=== PATIENT | male | born 1950 | race Caucasian/White ===

== ENCOUNTER 2023-10-24 06:07 | Day surgery (SDC) | payer BC, SELFPAY ==
[2023-10-24] VITALS (9 sets, daily range): BP systolic 102–156; BP diastolic 67–84; BMI 25.4
--- NOTE | 2023-10-24 06:58 | HP.FOC2 ---
Focused History & Physical
Chief Complaint
HPI:
Chief Complaint: Right inguinal swelling
HPI / Indication for Planned Procedure: Patient is a 72-year-old male previously known to myself status post laparoscopic TEP repair left inguinal hernia in 2017. Over the past few months he has noted swelling in the right inguinal region.
Outpatient evaluation confirmed the presence of a reducible right inguinal hernia. He presents today for scheduled operative correction.
Relevant Past Medical History: Other (Paroxysmal ventricular tachycardia, history of constipation, ERNA)
Relevant Social History: Negative and Tobacco Use (Former)
Relevant Family History: Negative
Relevant Past Surgical History: Positive for (Lap TEP left inguinal hernia pair with mesh 2017, removal of skin lesions)
Review of Systems
Review of Pertinent Systems: All Systems Negative
Medication
See Medication form for detailed medications: Yes
Medication List (including Herbals & OTC):
saw palmetto 1 dose PO DAILY 09/10/23
turmeric 400 mg capsule 400 mg PO DAILY 09/10/23
vit C 250 mg-vit E 90 mg-zinc 40 mg-copper 1 jk-raclwj-kjuvrn capsule (PreserVision AREDS-2) 1 tab PO BID 09/10/23
vit F-ogmlvyw-nznyfrfcu-rutin-[id number] 500 mg-50 mg-25 mg-40 mg tablet (Bioflex) 1 tab PO DAILY 09/10/23
Medications Reviewed: Yes
Allergies and Reactions
Patient has Allergies: No
Noted Allergies and Reactions:
Allergy/AdvReac Type Severity Reaction Status Date / Time
No Known Allergies Allergy Verified 10/21/23 11:06
Pertinent Physical Exam
All Other Systems: Negative
Head/Neck: Normal
Lungs: Normal
Heart: Normal
Abdomen: Other (Right inguinal hernia)
Extremities: Normal
Neurological: Normal
Diagnosis / Assessment
72-year-old male presenting for scheduled operative correction right inguinal hernia
Plan / Procedure
Laparoscopic TEP repair right inguinal hernia with mesh
Anesthesia/Sedation to be done by Anesthesia Provider: Yes
[2023-10-24] MEDS: TYLENOL 1000 MG PO (07:11)
[2023-10-24] MEDS: NORMOSOL-R 1000 IV (07:12)
--- NOTE | 2023-10-24 07:12 | W.SUR.PREOP ---
Pre-Operative Surgical Note
-
I have examined this patient prior to the performance of the scheduled procedure.
The patient's condition is unchanged from the time of the current History and
Physical and the patient is able to undergo the scheduled procedure.
--- NOTE | 2023-10-24 08:36 | W.IMMPOSTOP ---
Addendum entered and electronically signed by Naresh York MD 10/24/23 08:44:
#[id number]
correction: no lipoma of cord identified
Original Note:
Surgical Immed Post Op Note
-
Primary Surgeon: Chela
Assisting Surgeon: None
Pre-op Diagnosis: Right inguinal hernia
Post-op Diagnosis: Right inguinal hernia, indirect
Procedure Performed: Laparoscopic TEP repair right inguinal hernia with mesh; 3D max large mid weight
Anesthesia Type: GETA +0.25% Marcaine
Specimen / Cultures: None
Estimated Blood Loss: 4 mL
Complications: None immediate
Operative Findings: Right indirect inguinal hernia. Lipoma of the cord. No peritoneal entry with dissection. 3D max large mid weight mesh repair. No tacks.
== END 2023-10-24 10:25 | disposition home or self-care (01) ==
LOC: SDS 06:07
PROVIDERS: ATTENDING PHYSICIAN Surgery
DX: K40.90 Unilateral inguinal hernia, without obstruction or gangrene, not specified as recurrent (principal)
CPT/HCPCS: 49650; C1781

== ENCOUNTER → 2023-12-23 06:34 | Day surgery (SDC) | payer BC, SELFPAY | LOC: GI 06:34 | PROVIDERS: ATTENDING PHYSICIAN Internal Medicine Gastroenterology | DX: Z12.11 Encounter for screening for malignant neoplasm of colon (principal); K57.30 Diverticulosis of large intestine without perforation or abscess without bleeding; K64.8 Other hemorrhoids; D12.5 Benign neoplasm of sigmoid colon | CPT/HCPCS: 45385; 88305 ==

== ENCOUNTER → 2024-04-26 13:36 | Outpatient (REF) | payer BC, SELFPAY | LOC: RCS 13:36 | PROVIDERS: ATTENDING PHYSICIAN Internal Medicine Interventional Cardiology; FAMILY PHYSICIAN Family Medicine | DX: I10 Essential (primary) hypertension (principal) | CPT/HCPCS: 93306 ==

== ENCOUNTER → 2024-05-11 09:59 | Outpatient (REF) | payer BC, SELFPAY | LOC: RAD 09:59 | PROVIDERS: ATTENDING PHYSICIAN Otolaryngology Facial Plastic Surgery; FAMILY PHYSICIAN Family Medicine | DX: R13.12 Dysphagia, oropharyngeal phase (principal); H81.11 Benign paroxysmal vertigo, right ear; H93.13 Tinnitus, bilateral | CPT/HCPCS: 74221 ==

== ENCOUNTER 2024-11-21 16:10 | Observation (INO) | payer BC, SELFPAY ==
[2024-11-21] VITALS (10 sets, daily range): BP systolic 131–157; BP diastolic 61–84; BMI 25.1; BMI 24.0
--- NOTE | 2024-11-21 12:31 | CON.NEURO ---
Consultation
Order
Date of Consultation: 11/21/24
Requesting Provider: Bubba Barrientos MD
Reason for Consult: Blurred vision
Neurology Consultation Note.
HPI: This is a 74-year-old man who presented to [facility] on 11/21/2024 with visual symptoms.
He reports experiencing transient 'little white lights'. It was binocular, painless, persisting when either eye was closed. The visual defect was initially in the middle of his vision and then drifted to the left. The patient denies any associated
headaches, change in speech, strength or sensation.
Of note Mr. Henderson did lose his friend to heart attack recently
ER VS: 156/84, 67�56, afebrile
EKG: NSR, QTc Int : 422 ms
PDMP:none
Labs: Glucose�115, normal sodium, creatinine, magnesium, WBCs
CT head wo contrast�mild volume loss
PMH: paroxysmal ventricular tachycardia, IGT, asymptomatic bradycardia, R SNHL, ERNA rotator cuff syndrome
PSH: Bilateral inguinal hernia repair,
SH: born in [place], , non-smoker, independent in ADLs, employed in technical sales
All:NKDA
ROS: Constitutional: Negative. Negative for chills, fever and unexpected weight change.
HENT: Negative for ear pain, hearing loss, tinnitus and trouble swallowing.
Eyes: Negative. Negative for photophobia, pain and visual disturbance.
Respiratory: Negative for cough, choking and shortness of breath.
Cardiovascular: Negative for chest pain, palpitations and leg swelling.
Gastrointestinal: Negative for abdominal pain and vomiting.
Endocrine: Negative. Negative for cold intolerance.
Genitourinary: Negative for dysuria, flank pain and urgency.
Musculoskeletal: Negative for back pain, gait problem, neck pain and neck stiffness.
Skin: Negative for rash.
Allergic/Immunologic: Negative. Negative for immunocompromised state.
Neurological: Positive for short-term memory changes
Psychiatric/Behavioral: Positive for insomnia
General: Well developed. In no acute distress.
Cardio: Regular rate and rhythm without murmur. Extremities are without cyanosis or edema.
Neuro:
Mental Status: Alert, oriented to person, place, and date. Normal attention and recall. Good fund of knowledge. Follows complex requests across the midline. Comprehension, naming, and repetition intact. Immediate and delayed recall 3/3.
Cranial Nerves: Pupils are equally round and reactive to light. EOMs full. Visual ledesma full to confrontation. No ptosis. No nystagmus. V1-V3 intact to light touch and pinprick bilaterally, symmetric. Face symmetric. Impaired hearing.
Palate elevated well. SCMs and traps 5/5. Tongue midline. No dysarthria.
Motor: Normal bulk and tone. No pronator or arm drift. Strength 5/5 throughout. No clonus.
Reflexes: 2+ throughout the upper extremities and knees. 2/2 in AJs. Plantar responses flexor bilaterally.
Sensory: Normal vibration and JPS.
Coordination: No dysmetria or tremor.
Gait: deferred
Assessment and Plan:
I. Probable migraine with aura
II. Elevated blood pressure
III. ERNA
-Continue Telemetry monitoring
-Start ASA 81 mg QD
-Please check ESR, CRP, B12
-Brain MRI without jac
-Ophthalmology consult
-Further workup will depend on brain MRI result
-DVT prophylaxis.
-Case was discussed with patient's son.
I personally reviewed all radiology and labs along with past medical records pertinent to current medical problems. Total time spent in patient care is 60 minutes.
Thank you for allowing us to participate in the care of this patient. We will continue to follow. Please do not hesitate to contact us with any questions or concerns.
Subjective/Objective
Subjective Data
Date of Service: November 21, 2024
Objective Data
Vital Signs
Temp Pulse Resp BP Pulse Ox
36.4 C 59 18 157/84 100
11/21/24 11:30 11/21/24 11:30 11/21/24 11:30 11/21/24 11:30 11/21/24 11:30
Patient Allergies
No Known Allergies Allergy (Verified 11/21/24 11:30)
Medications
-
Home Medications
�Medication �Instructions �Recorded
saw palmetto 1 dose PO DAILY 09/10/23
turmeric 400 mg capsule 400 mg PO DAILY 09/10/23
vit C 250 mg-vit E 90 mg-zinc 40 1 tab PO BID 09/10/23
mg-copper 1 lq-befpys-uctshh
capsule (PreserVision AREDS-2)
vit 1 tab PO DAILY 09/10/23
[id number]-qooorkb-edfyarnmp-rutin-msir247
500 mg-50 mg-25 mg-40 mg tablet
(Bioflex)
acetaminophen 500 mg tablet 1,000 mg (2 x 500 mg) PO Q6HPRN 10/24/23
(Tylenol Extra Strength) PRN mild pain #1 tab
ibuprofen 200 mg tablet 400 mg (2 x 200 mg) PO Q6HPRN PRN 10/24/23
moderate pain #1 tab
oxycodone 5 mg tablet 5 mg PO Q4HPRN PRN 10/24/23
breakthrough/severe pain #5 tabs
polyethylene glycol 3350 17 4 g PO DAILY PRN Constipation #119 10/24/23
gram/dose oral powder (Miralax) grams
Vital Signs and Labs
-
Vital Signs and Labs:
Vital Signs
Temp Pulse Resp BP Pulse Ox
36.4 C 56 18 155/61 100
11/21/24 11:30 11/21/24 13:30 11/21/24 11:30 11/21/24 13:09 11/21/24 13:45
Lab Results
11/21/24 12:24
11/21/24 12:24
Sodium 140 mmol/L (135-145) 11/21/24 12:24
Potassium 5.1 mmol/L (3.5-5.1) 11/21/24 12:24
BUN 16 mg/dl (9-20) 11/21/24 12:24
Glucose 115 mg/dl (70-99) H 11/21/24 12:24
Calcium 9.9 mg/dl (8.4-10.2) 11/21/24 12:24
Home Medications
-
Home Medications
saw palmetto 1 dose PO DAILY 09/10/23
turmeric 400 mg capsule 400 mg PO DAILY 09/10/23
vit C 250 mg-vit E 90 mg-zinc 40 mg-copper 1 og-amiusn-kehfpu capsule (PreserVision AREDS-2) 1 tab PO BID 09/10/23
vit O-ljxpheu-ctazwwulb-rutin-rfhb982 500 mg-50 mg-25 mg-40 mg tablet (Bioflex) 1 tab PO DAILY 09/10/23
acetaminophen 500 mg tablet (Tylenol Extra Strength) 1,000 mg (2 x 500 mg) PO Q6HPRN PRN mild pain #1 tab 10/24/23
ibuprofen 200 mg tablet 400 mg (2 x 200 mg) PO Q6HPRN PRN moderate pain #1 tab 10/24/23
oxycodone 5 mg tablet 5 mg PO Q4HPRN PRN breakthrough/severe pain #5 tabs 10/24/23
polyethylene glycol 3350 17 gram/dose oral powder (Miralax) 4 g PO DAILY PRN Constipation #119 grams 10/24/23
[2024-11-21 12:33] LABS: Hematocrit 43.1 % (39.0-52.0); Hemoglobin 14.7 g/dL (13.0-18.0); Mean Corp Hgb Conc. 34.1 g/dL (33.0-37.0); Mean Corpuscular Hgb 30.3 pg (27.0-31.0); Mean Corpuscular Volume 88.9 fL (80.0-94.0); Mean Platelet Volume 9.8 fL (7.4-10.4); Platelet Count 157 10^3/uL (130-400); Red Blood Cell Count 4.85 10^6/uL (4.70-6.10); Red Cell Dist. Width 12.9 % (11.5-14.5); White Blood Cell Count 7.5 10^3/uL (4.8-10.8)
[2024-11-21 12:46] LABS: Blood Urea Nitrogen 16 mg/dl (9-20); Calcium 9.9 mg/dl (8.4-10.2); Carbon Dioxide 29 mmol/L (22-30); Chloride 107 mmol/L (98-107); Estimated Creatinine Clearance 73 ml/min; Glucose 115 mg/dl (70-99); Potassium 5.1 mmol/L (3.5-5.1); Sodium 140 mmol/L (135-145); eGFR > 60.00
--- NOTE | 2024-11-21 12:50 | ED.GENMED ---
History of Present Illness
General
Chief Complaint: Visual Problem
Source: patient and spouse
Exam Limitations: none
Time Seen by Provider: 11/21/24 12:05
History of Present Illness
History of Present Illness:
Patient presents to ED secondary to sudden onset of dizziness, associated with blurry vision and visualization of 'boomerang shaped' object in his visual field, lasting approximately 45 minutes with spontaneous resolution. Patient states that he
woke up around 7 AM, without any symptoms. He had coffee and his breakfast this morning. His symptoms started around 8:30 AM. Denies headache. Denies previous history of similar symptoms. Denies difficulty with speech or swallowing. Denies
loss of sensation or weakness. Denies difficulty with ambulation. Patient was evaluated urgent care center this morning and referred to ED for further evaluation and treatment.
Past History
Past History
ED Past Medical History: None; Negative Asthma, HTN, Hypercholesterolemia or NIDDM
ED Past Surgical History: None
Social History
Tobacco: Smoker
Alcohol: Daily (Wine)
Drug: None
Personal:
Living: with family
Review of Systems
Review of Systems
Allergies reviewed?: Yes
All Other Systems: ROS reviewed and negative except as documented in HPI and ROS
Constitutional: Reports no symptoms
Respiratory: Reports no symptoms
Cardiac: Reports no symptoms
ABD/GI: Reports no symptoms; Denies nausea or vomiting
Musculoskeletal: Reports no symptoms
Skin: Reports no symptoms
Neurological: Reports no symptoms
Phy Exam
Physical Exam
Physical Exam:
Physical Exam
General: no apparent distress, not acutely ill. afebrile
Head: nc/at. eomi
Neck: supple. no meningeal signs. No nystagmus.
Heart: s1/s2 regular rate and rhythm, no murmur.
Lungs: no acute respiratory distress. clear bilaterally
Abdomen: normal bowel sounds. not tender.
Neuro: alert and oriented x 3. no focal neurological deficits. normal nkvn-hw-irbf testing
Skin: no rash
Psychiatric: well kept. interactive and cooperative
Extremities: no edema. no calf tenderness.
Course
Orders/Labs/Results
Orders:
Orders
11/21/24 12:20
Electrocardiogram (*1) Urgent
Reason for Study: Vertigo / Dizzy
CT Head W/o Iv Contrast Urgent
Comment:
Reason For Exam: dizziness w blurred vision
EKG- Treatment ONCE
11/21/24 12:23
NEUROLOGY CONSULT Urgent
Consulting Provider: Laureen Roberson
Was physician already notified: Yes
Reason for consult: dizziness/blurred vision
11/21/24 12:24
Basic Metabolic Panel Urgent
Complete Blood Count/No Diff Urgent
Magnesium Urgent
11/21/24 14:32
MRI Brain [MR Brain Without Contrast] Routine
Comment:
Reason For Exam: tia
OK for patient to be off Cardiac Monitoring for MRI: No
Recent pill cam endoscopy?: No
11/21/24 14:36
CRP [C-Reactive Protein] Routine
ESR [Erythrocyte Sed Rate] Routine
TSH Reflex To Free T4 Routine
Vitamin B12 Routine
11/21/24 14:50
Aspirin Chewable [Low Strength Aspirin] 81 mg PO NOW STA
11/21/24 15:41
Admit/Transfer Patient As Directed
Co-Sign Provider:
Level of Care: Observation services
Assign to:: Telemetry
Physician / Group: Madelyn Turner
Diagnosis: TIA
Reason for Telemetry: CVA/TIA
Date to Stop Telemetry: 11/24/24
Time to Stop Telemetry: 11:00
Code Status As Directed
Resuscitation Status: Full Code
PRN Pain Medication Management As Directed
May give lesser potent ordered pain med per pt: Yes
preference::
Protocol:: Medication orders for pain may be administered in a
manner that supports deferring to patient preference
when the pt is:
- Requesting an ordered lesser potent pain medication.
Least to most potent pain medications are defined
as: acetaminophen < NSAID < tramadol < opioids
(morphine, oxycodone, hydromorphone).
- Requesting a lesser dose of the same medication IF
ORDERED.
- Requesting a less intrusive route of administration
if both routes are prescribed by the provider (PO <
IV).
11/24/24 11:00
DC Protocol for Telemetry ONCE
Abnormal Lab Results
11/21/24
12:24
Glucose 115 H mg/dl
(70-99)
11/21/24 12:24
11/21/24 12:24
Vital Signs
Initial and Last Documented VS:
Initial Vital Signs
Temp Pulse Resp BP Pulse Ox
97.6 F 59 18 157/84 100
11/21/24 11:30 11/21/24 11:30 11/21/24 11:30 11/21/24 11:30 11/21/24 11:30
Last Documented Vital Signs
Temp Pulse Resp BP Pulse Ox
97.6 F 63 18 132/62 97
11/21/24 11:30 11/21/24 18:30 11/21/24 11:30 11/21/24 18:00 11/21/24 17:30
MDM/Problems Addressed
MDM/Problems Addressed:
CT head report reviewed and discussed with patient and family at bedside.
Patient evaluated in ED by neurology, . Recommends admission to hospitalist service for further evaluation and treatment, including MRI brain. In the meantime, recommend starting patient on 81 mg aspirin daily.
*EKG
Interpreted by ED Provider?: Yes
EKG Intrepretation Date: 11/21/24
Heart Rate: 64
Rate: normal
Rhythm: sinus
[place]: normal axis
Ischemia: non-specific ST changes
*Critical Care Note
Total Time (30-74mins, 75-104mins- exclusive of procedures): Not Applicable
ED Attending Note
-
Portions of this chart may have been created with voice recognition software.� Occasional wrong word or��sound alike� substitutions may have occurred due to the inherent limitations of voice recognition software.
Discharge Plan
Departure
Patient Disposition: Admit
Date of Disposition: 11/21/24
Time of Disposition: 14:58
Admit to: Telemetry
Presentation/result/management discussed w/ accepting MD/DO: Hospitalist
Discharge Problem:
Brain TIA
Interventions
Interventions:
*Risk Screen - Suicide Last Done: 11/21/24 11:30
*General Assessment Last Done: 11/21/24 11:30
*Neglect/Abuse Screening Last Done: 11/21/24 11:30
*ED- Fall Risk Assessment Last Done: 11/21/24 12:17
*ED COVID-19 Vaccine History Last Done: 11/21/24 12:17
ED- Neurological Assessment Last Done: 11/21/24 12:18
ED-EENT Assessment Last Done: 11/21/24 12:18
ED Swallowing Screen Last Done: 11/21/24 12:32
[2024-11-21 14:56] LABS: Erythrocyte Sed Rate 10 mm/hour (0-20)
[2024-11-21 15:02] LABS: C-Reactive Protein < 5.00 mg/L (0.0-10.00)
[2024-11-21] MEDS: LOW STRENGTH ASPIRIN 81 MG PO (15:07)
--- NOTE | 2024-11-21 15:20 | HPS.HSE ---
Family Physician
-
Family Physician: Nayan Pruitt
Chief Complaint
-
sudden onset of dizziness and blurry vision
History of Present Illness
Mr. Rubin Henderson is a 74 yo man with hx PVC's presents to the ER after sudden onset of dizziness and blurry vision.
He woke up at 7AM without any symptoms. Around 8:30 AM he became dizzy. He noticed spots in his vision including a u shaped light. This persisted for 30-45 minutes. He had no difficulty speaking during this time. No weakness in arms or legs.
No headache.
No recent fevers/chills. No nausea/vomiting. No abdominal pain. No LE swelling or rash.
He does not take a daily aspirin at home.
Medical History
Past Medical History
Past Medical History: Reports Arrhythmia
Past Surgical History: Reports None
Social History
Tobacco: Former Smoker
Alcohol: Daily (one glass of wine)
Family History
Family History: Not pertinent
Allergies / Home Medications
Allergies reflects when Allergies were last updated in [employer].
Home Medications with original date entered in [employer]
Allergy/Medication List:
*awaiting med rec
Review of Systems
-
History Source: Patient
A 12 point ROS was completed and negative except as noted: Yes
Physical Exam
Vital Signs
Vital Signs
Temp Pulse Resp BP Pulse Ox
97.6 F 65 18 156/76 100
11/21/24 11:30 11/21/24 14:45 11/21/24 11:30 11/21/24 14:40 11/21/24 14:45
Physical Exam
General: No Apparent Distress and Conversant
HEENT: PERRLA (no ptosis, no nystagmus, EOMI)
Cardiac: S1/S2 and Regular Rhythm
GI: Soft and Non Tender
Musculoskeletal: No Edema
Skin: Warm and Dry; No Rash
Neuro: AO x 3 and Other (CAITLIN, EOMI, no facial asymmetry, 5/5 strength upper and lower extremities )
Psych: Calm
Laboratory Results
-
11/21/24 12:24
11/21/24 12:24
Data Reviewed
-
Diagnostic Radiology: Report Reviewed by me
Lab Data: Labs Reviewed by me
Impression/Plan
-
Mr. Rubin Henderson is a 74 yo man with hx PVC's presents to the ER after sudden onset of transient dizziness and blurry vision.
Triage VS: T 97.6, P 59, RR 18, BP 157/84, SpO2 100%
LABS: WBC 7.5, Hg 14.7, PLT 157, Na 140, K+ 5.1, CO2 29, BUN 16, Cr 0.9, Glucose 115, CRP < 5,
HEAD CT
IMPRESSION:
No acute intracranial abnormality noted.
Transient blurry vision and dizziness
TIA versus migraine with Aura
-admit to observation, telemetry
-appreciate Neurology recommendations
-MRI Brain ordered
-per neuro, no need for vascular imaging at this time
-daily aspirin
-team to touch base with Ophthalmology tomorrow to expedite outpatient appointment
DVT Ppx SCD
FULL CODE
[2024-11-21 15:32] LABS: TSH Reflex To Free T4 1.08 uIU/ml (0.47-4.68)
[2024-11-21 15:51] LABS: Vitamin B12 379 pg/ml (239-931)
--- NOTE | 2024-11-21 20:00 | PTCARENOTE ---
Pt arrived to room 419-02. Pt ambulated from stretcher to bed. Pt AAOx3, VSS. Refer to NIH stroke scale. Pt oriented to room, call lilly placed within reach.
[2024-11-22 03:25] VITALS: BP 142/70
[2024-11-22 07:55] VITALS: BP 138/66
[2024-11-22 08:59] VITALS: PULSE 55; O2SAT 98
[2024-11-22 09:08] LABS: HDL Cholesterol 43 mg/dl; LDL Cholesterol, Calculated 125 mg/dl; Total Cholesterol 187 mg/dl (50-199); Triglyceride 95 mg/dl (10-149); Very Low Density Lipoprotein 19 mg/dl (0-30)
[2024-11-22 09:16] VITALS: PULSE 58; O2SAT 99
[2024-11-22 09:40] LABS: Glycohemoglobin (HgbA1c) 5.7 % (4.0-5.6)
[2024-11-22] MEDS: LOW STRENGTH ASPIRIN 81 MG PO (09:45)
--- NOTE | 2024-11-22 09:50 | PTOTSP ---
Speech Therapy Evaluation:
Pt exhibits clinical signs of pharyngeal dysphagia, likely chronic in relation to long-standing hx of throat clearing and/or coughing during meals with liquids > solids per pt report. Pt reported receiving a swallow test last year due to difficulty
with unremarkable results. Per chart review, pt had an esophagram. Esophagram from 2023 revealed 1) swallow mechanism in tact. 2) No penetration or aspiration. 3) Mild dysmotility. 4) Small hiatal hernia. On this date, pt with intermittent
throat clearing across consistencies with both solids and liquids. Given chronicity of symptoms without development of pulmonary complications (no CXR completed thus far), stable vital signs, and WBC WNL, discussed recommendations to continue oral
diet with consideration for IP vs OP VSE pending hospitalization. Pt in verbal agreement.
Recommend:
1. Continue IDDSI Level 7 (regular) solids and thin liquids
2. Medications as tolerated
3. Aspiration and reflux precautions
4. FISHER EEL SPEAR to follow pending hospitalization to determine if pt would benefit from IP vs OP instrumental assessment.
[2024-11-22 11:26] VITALS: BP 145/72
--- NOTE | 2024-11-22 14:07 | W.PN.HOSP.TC ---
Today's Communication/Plan
-
Pending brain MRI
Assessment / Plan
Assessment / Plan
NAD, steady gait, able to stand and set
Scleral Anicteric
MMM
No JVD
CTABL
RRR, S1/S2
Soft, NT, ND, BS+
Warm, Dry
AAOx3
Calm
TIA versus migraine with aura
- Symptomatology now resolved
- CT brain without acute findings
- MRI brain pending
- Neurology recommendations appreciated
- Daily aspirin
- Recommended to follow-up with outpatient ophthalmology
Anticipated Discharge: Within 24 hours
Subjective/Interval History
-
Date of Service: November 22, 2024
Seen and examined. No new complaints. No acute over night events
Binocular vision loss resolved
No new complaints
No acute overnight events
Objective Data
-
Vital Signs:
Vital Signs
Temp Pulse Resp BP Pulse Ox
97.7 F 55 17 145/72 99
11/22/24 11:26 11/22/24 11:26 11/22/24 11:26 11/22/24 11:26 11/22/24 11:26
I&O
11/21/24 11/22/24 11/23/24
06:59 06:59 06:59
Intake Total 480 / 480
Balance 480 / 480
--- NOTE | 2024-11-22 14:55 | W.DCSUMMARY ---
Discharge Summary
Discharge Data
Date of Admission: 11/21/24
Date of Discharge: 11/22/24
-
Pending Results: No
Hospital Course
74-year-old male with a history of PVCs
Presented with sudden onset dizziness and blurry vision. Evaluated by neurology in the ED which did not believe it was related to her stroke however was concern for migraine with aura. Started aspirin and MRI was obtained. Along with
ophthalmology consult recommendation. As we do not have ophthalmology inpatient discussed this with neurology and recommended outpatient follow-up. MRI was completed without evidence of acute abnormality.
Should be noted that A1c was 5.7 and will need to follow modified diet for prediabetes/diabetes.
Additionally should be noted that the calculated ASCVD score is 31.3% and is recommended to start on moderate to high intensity statin to reduce cardiovascular event such as CAD/stroke/TN
Should follow-up with outpatient neurology and ophthalmology as soon as possible.
Discharge Plan
-
Patient Disposition: Home (Routine Discharge)
Discharge Diagnosis/Procedures: Migraine with aura per Neuro
Condition: Good
Diet: As tolerated
Activity: As tolerated
Activity Restrictions/Additional Instructions:
74-year-old male with a history of PVCs
Presented with sudden onset dizziness and blurry vision. Evaluated by neurology in the ED which did not believe it was related to her stroke however was concern for migraine with aura. Started aspirin and MRI was obtained. Along with
ophthalmology consult recommendation. As we do not have ophthalmology inpatient discussed this with neurology and recommended outpatient follow-up. MRI was completed without evidence of acute abnormality.
Should be noted that A1c was 5.7 and will need to follow modified diet for prediabetes/diabetes.
Additionally should be noted that the calculated ASCVD score is 31.3% and is recommended to start on moderate to high intensity statin to reduce cardiovascular event such as CAD/stroke/TN
Should follow-up with outpatient neurology and ophthalmology as soon as possible.
Referrals:
Nayan Pruitt MD [Family Provider] -
Prescriptions:
New
aspirin 81 mg Tablet,Chewable
81 mg PO DAILY Qty: 30 0RF
atorvastatin 40 mg tablet
40 mg PO HS Qty: 30 0RF
Continued
Bioflex 242-92-96-40 mg Tablet
1 tab PO DAILY
PreserVision AREDS-2 250-90-40-1 mg Capsule
1 tab PO DAILY
polyvinyl alcohol [Artificial Tears (polyvin alc)] 1.4 % Drops
1 drp OPHTHALMIC (EYE) HS PRN (Reason: dry eyes)
glucosamine sulfate [Glucosamine] 500 mg Tablet
500 mg PO DAILY
saw palmetto 500 mg Capsule
500 mg PO DAILY
turmeric 400 mg Capsule
400 mg PO DAILY
Discharge Orders:
Discharge Patient (As Directed); Ordered 11/22/24
Ordered By: Mustapha Castelan
Discharge Date and Time
Print Language: LAO
[2024-11-22 15:27] VITALS: BP 120/67
--- NOTE | 2024-11-22 16:48 | CM ---
Patient discharged before case planner was able to assess and discuss discharge plan
[2024-11-22 19:59] LABS: Hepatitis C Antibody Negative (Negative)
== END 2024-11-22 16:43 | disposition home or self-care (01) ==
LOC: 4 WEST ACU 16:10
PROVIDERS: ADMITTING PHYSICIAN Student in an Organized Health Care Education/Training Program; ATTENDING PHYSICIAN Hospitalist; CONSULT PHYSICIAN Psychiatry & Neurology Neurology; EMERGENCY PHYSICIAN Emergency Medicine; FAMILY PHYSICIAN Family Medicine
DX: G43.109 Migraine with aura, not intractable, without status migrainosus (principal); H53.8 Other visual disturbances; R42 Dizziness and giddiness; F17.200 Nicotine dependence, unspecified, uncomplicated; G47.33 Obstructive sleep apnea (adult) (pediatric); I47.20 Ventricular tachycardia, unspecified; R73.02 Impaired glucose tolerance (oral); H91.90 Unspecified hearing loss, unspecified ear; R94.31 Abnormal electrocardiogram [ECG] [EKG]; G31.9 Degenerative disease of nervous system, unspecified; I67.82 Cerebral ischemia; Z63.4 Disappearance and death of family member; Z86.79 Personal history of other diseases of the circulatory system
CPT/HCPCS: 70450; 70551; 80048; 80061; 82607; 83036; 83735; 84443; 85027; 85652; 86140; 86803; 92610; 93005; 97161; 97166; 99285; G0378

== ENCOUNTER 2025-06-17 08:06 | Outpatient (RCR) | payer BC, SELFPAY | END 2025-06-17 23:59 | disposition home or self-care (01) | LOC: RPT 08:06 | PROVIDERS: ATTENDING PHYSICIAN Physician Assistant Surgical; FAMILY PHYSICIAN Family Medicine | DX: Z47.89 Encounter for other orthopedic aftercare (principal); Z98.890 Other specified postprocedural states (principal); Z73.6 Limitation of activities due to disability; M62.81 Muscle weakness (generalized); M25.511 Pain in right shoulder | CPT/HCPCS: 97010; 97110; 97140; 97161; 97530 ==

== ENCOUNTER 2025-07-15 06:49 | Outpatient (RCR) | payer BC, SELFPAY | END 2025-07-15 23:59 | disposition home or self-care (01) | LOC: RPT 06:49 | PROVIDERS: ATTENDING PHYSICIAN Physician Assistant Surgical; FAMILY PHYSICIAN Family Medicine | DX: Z98.890 Other specified postprocedural states (principal); Z73.6 Limitation of activities due to disability; Z47.89 Encounter for other orthopedic aftercare; M62.81 Muscle weakness (generalized); M25.511 Pain in right shoulder | CPT/HCPCS: 97010; 97110; 97140 ==

== ENCOUNTER 2025-08-05 08:13 | Outpatient (RCR) | payer BC, SELFPAY | END 2025-08-05 23:59 | disposition home or self-care (01) | LOC: RPT 08:13 | PROVIDERS: ATTENDING PHYSICIAN Physician Assistant Surgical; FAMILY PHYSICIAN Family Medicine | DX: Z47.89 Encounter for other orthopedic aftercare (principal); Z73.6 Limitation of activities due to disability; M62.81 Muscle weakness (generalized); M25.511 Pain in right shoulder; Z98.890 Other specified postprocedural states | CPT/HCPCS: 97110; 97112; 97140 ==